=== PATIENT | female | born 1945 | race Caucasian/White ===

== ENCOUNTER → 2017-01-06 | Outpatient (CLI) | payer MEDICARE ==
--- NOTE | 2017-01-13 12:41 | RADIOLOGY REPORT PS360 ---
STEROTATIC BX W/CLIP-RT DIG MAMM-DX UNI-RT W/CAD, CLINICAL INDICATION: Abnormal mammogram showing suspicious calcifications RIGHT BREAST CALCS ORDERING PHYSICIAN: [facility] PATIENT AGE: 71 years COMPARISON: 12/22/2016 mammogram TECHNIQUE: Following obtaining informed consent calcifications were localized using standard stereotactic technique. Under aseptic technique with local anesthesia with 1% buffered lidocaine and deeper anesthesia with 1% buffered lidocaine mixed with epinephrine, 11-gauge mammotomy needle was inserted through a dermatotomy site and deemed to be in satisfactory position. Multiple mammotome core's were obtained. Tissue specimen: Calcifications of interest are within the specimen. Titanium clip was then placed in satisfactory position. The patient tolerated the procedure well without evidence of me, location. Postbiopsy mammogram: Calcifications of interest have been removed.. The clip is in good position. There are postbiopsy changes Pathology: Hyalinized fibroadenoma with calcifications. Negative for atypia or malignancy. IMPRESSION: Successful stereotactic directed biopsy of the right breast showing benign findings. No immediate complication. Recommendations: 6 month mammographic follow-up per routine protocol
--- NOTE | 2017-01-13 12:41 | RADIOLOGY REPORT PS360 ---
STEROTATIC BX W/CLIP-RT DIG MAMM-DX UNI-RT W/CAD, CLINICAL INDICATION: Abnormal mammogram showing suspicious calcifications RIGHT BREAST CALCS ORDERING PHYSICIAN: [facility] PATIENT AGE: 71 years COMPARISON: 12/22/2016 mammogram TECHNIQUE: Following obtaining informed consent calcifications were localized using standard stereotactic technique. Under aseptic technique with local anesthesia with 1% buffered lidocaine and deeper anesthesia with 1% buffered lidocaine mixed with epinephrine, 11-gauge mammotomy needle was inserted through a dermatotomy site and deemed to be in satisfactory position. Multiple mammotome core's were obtained. Tissue specimen: Calcifications of interest are within the specimen. Titanium clip was then placed in satisfactory position. The patient tolerated the procedure well without evidence of me, location. Postbiopsy mammogram: Calcifications of interest have been removed.. The clip is in good position. There are postbiopsy changes Pathology: Hyalinized fibroadenoma with calcifications. Negative for atypia or malignancy. IMPRESSION: Successful stereotactic directed biopsy of the right breast showing benign findings. No immediate complication. Recommendations: 6 month mammographic follow-up per routine protocol
--- NOTE | 2017-01-13 12:41 | RADIOLOGY REPORT PS360 ---
STEROTATIC BX W/CLIP-RT DIG MAMM-DX UNI-RT W/CAD, CLINICAL INDICATION: Abnormal mammogram showing suspicious calcifications RIGHT BREAST CALCS ORDERING PHYSICIAN: [facility] PATIENT AGE: 71 years COMPARISON: 12/22/2016 mammogram TECHNIQUE: Following obtaining informed consent calcifications were localized using standard stereotactic technique. Under aseptic technique with local anesthesia with 1% buffered lidocaine and deeper anesthesia with 1% buffered lidocaine mixed with epinephrine, 11-gauge mammotomy needle was inserted through a dermatotomy site and deemed to be in satisfactory position. Multiple mammotome core's were obtained. Tissue specimen: Calcifications of interest are within the specimen. Titanium clip was then placed in satisfactory position. The patient tolerated the procedure well without evidence of me, location. Postbiopsy mammogram: Calcifications of interest have been removed.. The clip is in good position. There are postbiopsy changes Pathology: Hyalinized fibroadenoma with calcifications. Negative for atypia or malignancy. IMPRESSION: Successful stereotactic directed biopsy of the right breast showing benign findings. No immediate complication. Recommendations: 6 month mammographic follow-up per routine protocol
--- NOTE | 2017-01-13 12:41 | RADIOLOGY REPORT PS360 ---
STEROTATIC BX W/CLIP-RT DIG MAMM-DX UNI-RT W/CAD, CLINICAL INDICATION: Abnormal mammogram showing suspicious calcifications RIGHT BREAST CALCS ORDERING PHYSICIAN: [facility] PATIENT AGE: 71 years COMPARISON: 12/22/2016 mammogram TECHNIQUE: Following obtaining informed consent calcifications were localized using standard stereotactic technique. Under aseptic technique with local anesthesia with 1% buffered lidocaine and deeper anesthesia with 1% buffered lidocaine mixed with epinephrine, 11-gauge mammotomy needle was inserted through a dermatotomy site and deemed to be in satisfactory position. Multiple mammotome core's were obtained. Tissue specimen: Calcifications of interest are within the specimen. Titanium clip was then placed in satisfactory position. The patient tolerated the procedure well without evidence of me, location. Postbiopsy mammogram: Calcifications of interest have been removed.. The clip is in good position. There are postbiopsy changes Pathology: Hyalinized fibroadenoma with calcifications. Negative for atypia or malignancy. IMPRESSION: Successful stereotactic directed biopsy of the right breast showing benign findings. No immediate complication. Recommendations: 6 month mammographic follow-up per routine protocol
== END ==
LOC: RAD 13:27
PROC: 0H9T3ZX Drainage of Right Breast, Percutaneous Approach, Diagnostic (ICD-10-PCS; principal; 2017-01-06)
DX: R92.8 Other abnormal and inconclusive findings on diagnostic imaging of breast (principal)
CPT/HCPCS: G0206-RT

== ENCOUNTER → 2017-08-17 | Outpatient (CLI) | payer MEDICARE ==
--- NOTE | 2017-08-23 07:21 | RADIOLOGY REPORT PS360 ---
DIG MAMM-DX UNI RT W/AV W/CAD COMPARISON: 12/10/2016 INDICATION: Follow-up breast biopsy ORDERING PHYSICIAN: [facility] PATIENT AGE: 72 years TECHNIQUE: Standard images performed along with spot compression views FINDINGS: There is average fibroglandular tissue. Previously noted calcifications in the upper outer aspect of the right breast are no longer apparent. Post biopsy changes are present at this region with increased density in the biopsy bed. No malignant appearing mass or malignant appearing microcalcification. There are benign-appearing calcifications. IMPRESSION: Benign findings, no evidence of malignancy BI-RADS CATEGORY: 2_Benign RECOMMENDED FOLLOWUP: Screening mammogram November 2017 (A letter has been sent to the patient regarding results of the study.)
--- NOTE | 2017-08-23 07:21 | RADIOLOGY REPORT PS360 ---
DIG MAMM-DX UNI RT W/AV W/CAD COMPARISON: 12/10/2016 INDICATION: Follow-up breast biopsy ORDERING PHYSICIAN: [facility] PATIENT AGE: 72 years TECHNIQUE: Standard images performed along with spot compression views FINDINGS: There is average fibroglandular tissue. Previously noted calcifications in the upper outer aspect of the right breast are no longer apparent. Post biopsy changes are present at this region with increased density in the biopsy bed. No malignant appearing mass or malignant appearing microcalcification. There are benign-appearing calcifications. IMPRESSION: Benign findings, no evidence of malignancy BI-RADS CATEGORY: 2_Benign RECOMMENDED FOLLOWUP: Screening mammogram November 2017 (A letter has been sent to the patient regarding results of the study.)
== END ==
LOC: RAD 12:30
DX: R92.8 Other abnormal and inconclusive findings on diagnostic imaging of breast (principal)
CPT/HCPCS: G0206-RT